=== PATIENT | male | born 1980 | race Caucasian/White ===

== ENCOUNTER 2024-04-13 11:47 | Emergency (ER) | payer OTHER, MEDICAID, SELFPAY ==
--- NOTE | ~2024-04-13 | XR_ITS ---
EXAMINATION: XR chest 2V DATE: 04/13/2024 12:23 INDICATION: Chest pain TECHNIQUE: PA and lateral views of the chest were obtained. COMPARISON: Chest radiograph dated 06/19/2004 FINDINGS: The lungs remain clear with no focal airspace opacities, pulmonary edema, pleural effusion or pneumot horax. The cardiomediastinal silhouette is normal. Mild anterior wedging of a couple vertebral bodies at the thoracolumbar junction and mild posterior wedging of the to more medially cephalad lower thor acic vertebral bodies. IMPRESSION: 1. No acute cardiopulmonary disease. Reviewed, dictated and finalized at location A. [facility]
[2024-04-13 11:47] VITALS: BP 144/104; PULSE 97; RESP 16; TEMP 37.1; O2SAT 96
--- NOTE | 2024-04-13 11:58 | ECG_ITS ---
Test Date: 2024-04-13 12:02:21 Measurements Intervals [place] Rate: 86 P: 55 MI: 148 QRS: 44 QRSD: 94 T: 61 QT: 332 QTc: 399 Interpretive Statements SINUS RHYTHM NORMAL ECG No previous ECG available for comparison Electronically Signed On 04-13-2024 16:49:40 SENIOR LABORATORY TECHNICIAN by Ge Conteh D.O.
--- OUTSIDE RECORDS SUMMARY | 2024-04-13 12:01 | XMS_ITS | Clinical Summary ---
Author Organization [facility] Address [address] [facility] [place] [address] Care Team Providers Care Tanning Wheel Operator Name Role Phone Khadar Dubose MD Primary Care Provider [phone] Source Comments [facility],non-owned Affiliates and Associated Physician Practices is amultiple site organization consisting of ambulatory clinics and hospital sitesin [place], [place], [place] and [place]. This disclosure is being madepursuant to the Care Everywhere program and may not contain all information available regarding this patient. Last updated 17.[facility] Allergies Active Allergy Reactions Criticality Noted Date Comments Aspirin Urticaria Medium 08/12/2010 Medications * Be aware that medications may not be up to date on this document. Alwaysverify current medications with the patient. Medication Sig Dispensed Refills Start Date End Date Status clonazePAM (KLONOPIN) 1 MG tablet Take 1 mg by mouth 2 times daily Active fluocinolone (DERMOTIC) 0.01 % otic oilIndications:Other seborrheic dermatitis Massage a few drops into ears twice daily. 20 mL 5 06/19/2018 Active fluocinolone acetonide (SYNALAR) 0.01 % solutionIndications:O ther seborrheic dermatitis Apply to ears twice daily. 30 days supply. 60 mL 3 01/29/2019 Active ketoconazole (NIZORAL) 2 % creamIndications:Othe r seborrheic dermatitis Apply to affected area once daily Apply to affected areas on face once daily 30 g 5 01/29/2019 Active ketoconazole (NIZORAL) 2 % shampooIndications:Ot her seborrheic dermatitis Apply to wet hair, leave on for 3-5 minutes, then rinse; three times weekly. 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 and trunk 06/15/2017 Immunizations Name Administration Dates Next Due INFLUENZA VACCINE 01/12/2019 Family History Medical History Relation Name Comments Cancer - Skin, Melanoma Paternal Grandmother Cancer - Skin, Non Melanoma Neg Hx Relation Name Status Comments Paternal Grandmother Social History Tobacco Use Types Packs/Day Years Used Date Smoking Tobacco: Former Cigarettes 1 5 Smokeless Tobacco: Current Chew Alcohol Use Standard Drinks/Week Comments Yes 0 (1 standard drink = 0.6 oz pur e alcohol) quit 2008 Sex and Gender Information Value Date Recorded Sex Assigned at Not on file Gender Identity Not on file Sexual Orientation Not on file Last Filed Vital Signs Vital Sign Reading Time Taken Comments Blood Pressure 123/80 08/12/2010 7:56 AM CDT Pulse 67 08/12/2010 7:56 AM CDT Temperature - - Respiratory Rate - - Oxygen Saturation 98% 08/12/2010 8:46 AM CDT Inhaled Oxygen Concentration - - Weight 74.8 kg (165 lb) 08/12/2010 7:56 AM CDT Height 162.6 cm (5' 4 ) 08/12/2010 7:56 AM CDT Body Mass Index 28.32 08/12/2010 7:56 AM CDT Plan of Treatment Health Maintenance Due Date Last Done Comments LIPID TESTING 1980 HIV SCREENING 06/12/1995 HEPATITIS C SCREENING 06/07/1998 DTAP/TDAP/TD VACCINES (1 - Tdap) 06/12/1999 HEPATITIS B VACCINE (1 of 3 - 19+ 3-dose series) 06/12/1999 COVID-19 VACCINE (2023-2 5 season) 2023 INFLUENZA VACCINE (#1) 2023 9, 02/06/2017, 01/14/2015 DEPRESSION SCREENING 02/28/2024 ZOSTER VACCINE (1 of 2) 2030 HIB VACCINE Aged Out No longer eligi ble based on patient's age to complete this topic HPV VACCINE Aged Out No longer eligi ble based on patient's age to complete this topic MENINGOCOCCAL (Group B) VACCINE Aged Out No longer eligible b ased on patient's age to complete this topic MENINGOCOCCAL VACCINE Aged Out No siddhartha torie eligible based on patient's age to complete this topic PNEUMOCOCCAL VACCINE Aged Out No long er eligible based on patient's age to complete this topic Care Teams Tanning Wheel Operator Relationship Specialty [place] [address] [place] [id number] PCP - General 06/09/17
--- OUTSIDE RECORDS SUMMARY | 2024-04-13 12:01 | XMS_ITS | Data Portability ---
Author Organization [place] - [facility] [employer], Main Office Address [address] [place] [id number] Care Team Providers Care Direct Entry Midwife Name Role Phone THAIS HUFFMAN Primary Care Provider Assessment Encounter Date Assessment Date Assessment LastModified by Organization Details LastModified Time 12/19/2023 12/19/2023 umbilical hernia, incarcerated most likely preperitoneal fat. Options discussed with patient. Will schedule for repair anesthesia possibly using mesh. Risks benefits discussed, main risks include bleeding infection bowel injuries Not available 12/19/2023 11:14:14 01/04/2024 01/04/2024 status post primary repair of incarcerated umbilical hernia. Doing well overall. Follow-up here p.r.n. Not available 01/04/2024 12:12:58 Plan of Treatment Reminders Order Date Submit Date Provider Last Modified By Organization Details Last Modified Time Details Appointments Follow Up 30 2024 03:30P M Marga Montesinos NP Not available Not available Not available Lab glycohemo globin, total, blood 2023 024 [facility] (Lab), [address] [place], [address], 01/19/2024 20:25:06 Referral pain managemen t referral - Please provide total pain care including prescript ions as needed. Controlle d Substance s not managed by primary care. Please call patient to schedule an appointme nt. Thank you. [address] [facility] (Pain Center), [address] [place] [address] [place], [address], 04/01/2024 11:05:28 pain managemen t referral - Please call patient to schedule an appointme nt. Thank you. 2023 024 [email or web address] Estela Mondragon [place], [address] [facility], [place], [address], 12/14/2023 09:21:14 general surgeon referral - Please call patient to schedule an appointme nt. Thank you. 2023 024 [email or web address] John Urbina MD, [address] [facility], [address], [place], [address], 12/14/2023 09:21:39 Procedures None recorded. Surgeries None recorded. Imaging CT, abdomen + pelvis, w/ contrast - Umbilical hernia with pain Please call pt to schedule 2023 024 [facility] ([facility]), [address] [place], [address], 12/12/2023 14:18:22 Medication Orders pantopraz ole 40 mg tablet,de layed release 2023 [facility][id number], [address] [place], [place], [id number], 01/19/2024 10:17:33 gabapenti n 300 mg capsule 2023 024 [facility] #[id number], [address] [place], [place], [id number], 01/19/2024 10:17:32 hydrocodo ne 5 mg-acetam inophen 325 mg tablet 2023 024 [facility] #37752, [address] [place], [place], [id number], 01/19/2024 09:57:48 hydrocodo ne 5 mg-acetam inophen 325 mg tablet [address] [facility]81600, [address] [place], [place], [id number], 01/19/2024 09:57:48 gabapenti n 300 mg capsule [address] [facility]54023, [address] [place], [place], [id number], 01/19/2024 09:57:59 omeprazol e 40 mg capsule,d elayed release [address] [facility]24856, [address] [place], [place], [id number], 01/19/2024 09:58:30 famotidin e 20 mg tablet [address] [facility]26006, [address] [place], [place], [id number], 01/19/2024 09:57:09 ondansetr on 4 mg disintegr ating tablet [address] [facility]87960, [address] [place], [place], [id number], 01/19/2024 09:58:21 Patient TargetsNo targets recorded. Patient InstructionsNo instructions recorded. Reason for Referral Pain Management Referral for Pain of left shoulder joint Please call patient to schedule an appointment. Thank you. Referring Physician: Thais Huffman Family Medicine, Encounter Date: 11/15/2023 General Surgeon Referral for Umbilical hernia Please call patient to schedule an appointment. Thank you. Referring Physician: Thais Huffman Family [facility], Encounter Date: 11/15/2023 Pain Management Referral for Chronic pain of left upper limb Please provide total pain care including prescriptions as needed. Controlled Substances not managed by primary care. Please call patient to schedule an appointment. Thank you. Referring Physician: Thais Huffman, Family Medicine, Encounter Date: 01/19/2024 Results Created Date Observation Date Name Description Value Unit Range Abnormal Flag Note LastModifiedBy Organization Detail LastModifiedTime 12/12/19 24 12/12/2023 CT, abdom en + pelvi s, w/ contr ast No observ ation record ed. [facility] [address] [place], [address], 12/12/2023 14:31:27 Result Notes None recorded. Problems Name Problem SNOMED Code Status Onset Date Resolution Date Notes Provider Name and Address Organization Details Recorded Time Lower urinary tract symptoms 711604902 Active Not Available [facility] 3 22:39:47 Pain in testicle 57098964 Active Not Available [facility] 3 22:39:47 Pain of right shoulder joint 95044816840 118439 Active 2022 Not Available [facility] 3 22:39:47 Pain of left shoulder joint 50756630149 544566 Active 2022 Not Available [facility] 3 22:39:47 Anxiety 62456811 Active 2022 Not Available [facility] 3 22:39:47 Cigarette smoker 77564902 Active 2022 Not Available [facility] 3 22:39:47 Rupture of rotator cuff of left shoulder 09689437828 965221 Active 2022 Niles Alatorre MD [address] [facility], [address], [place], [address] , [facility] 3 17:19:41 Cervical radiculop athy 22816845 Active 2023 Mariposa lopez, [facility] 4 10:44:03 Loose stool 462551180 Completed 202301/19/2024 HENNY Hanna [address] [facility], [address], [place], [address] , [employer] [facility] [employer] 4 10:15:07 Nausea and vomiting 77716065 Completed 202301/19/2024 [address]ENNY Hanna [address], [address], [place], [address] , [facility] 4 10:15:11 Diverticu litis 106909308 Completed 202301/19/2024 HENNY Hanna [address], [address], [place], [address] , [facility] 4 10:14:56 Hemangiom a of liver 61992884 Active 2023 TEO Garza [address], [address], [place], [address] , [facility] 4 14:12:29 Tendiniti s of long head of biceps brachii of left shoulder 851936720 Active 2023 HENNY Hanna [address], [address], [place], [address] , [facility] 4 09:28:52 Diverticu litis of colon 407777534 Active 2023 HENNY Hanna [address], [address], [place], [address] , [facility] 4 10:20:17 Polyuria 85706721 Active 2023 HENNY Hanna [address], [address], [place], [address] , [facility] 4 10:25:43 Partial thickness rotator cuff tear 943704726 Active 2023 FRANTZ Cutler, [facility] 4 09:29:46 Chronic back pain 149094268 Active 2023 FRANTZ Cutler, [facility] 4 09:30:08 Numbness and tingling sensation of skin 59648879640 2 Active 2023 Mariposa Robins john, [employer] [facility] 4 09:48:54 Acid reflux 017486883 Active 2023 HENNY Hanna [address], [address], [place], [address] , [employer] [facility] [employer] [facility] 4 10:36:54 Umbilical hernia 768021387 Active 2023 HENNY Hanna [address], [address], [place], [address] , [facility] 4 09:19:19 Prediabet es 427832697 Active 2023 HENNY Hanna [address], [address], [place], [address] , [employer] [facility] 4 10:11:37 Chronic pain of left upper limb 03108152781 568844 Active 2023 HENNY Hanna [address], [address], [place], [address] , [employer] [facility] 4 10:12:47 Postopera tive pain 577935150 Active 2023 HENNY Hanna [address], [address], [place], [address] , [employer] [facility] 4 10:15:25 Notes:Some problems listed i n Documents: #[id number], #[id number] could not be added to this patient's chart. Please review these documents and add these problems to the patient's chart manually as needed. Problem Notes None recorded. Procedures Surgical History Date Name Laterality Status Provider Name and Address Organization Details Recorded Time 4 Hernia Surgery completed Linh Alberts MA [employer] [facility] [employer] [facility] 01/04/2024 11:50:20 4 Transitional _Care_Manage ment completed TEO Garza [address], [address], [place], [address], [facility] [employer] [facility] 06/22/2023 08:04:59 Rotator cuff surgery completed FRANTZ Ackerman [facility] [employer] 08/07/2023 15:49:05 Sinus Surgery completed Varsha Aguilar RN [facility] [employer] 05/31/2022 12:45:41 Imaging Results Imaging Date Name Status LastModified by Organiz ation Details LastModified Time 12/12/2023 CT, abdomen + pelvis, w/ contrast completed [facility] [address] [facility], [place], [address], 12/12/2023 14:31:27 Procedure Notes None recorded. Medical Equipment None Reported. Allergies Allergen ID Allergen Name Allergen Category Reaction Reaction Severity Criticality Documentation Date Start Date Code Code System Note Provider Name and Address Organization Details Recorded Time 38491 aspirin medicatio n Not available Not available Not available 04/27/2022 1191 RxNorm Other react ions and sever ities : 'Adve rse react ion to subst ance' . HENNY Hanna [address] [facility], [address], [place], [address], [facility] [employer] 09:20:29 Medications Name Sig Start Date Stop Date Status Note LastModified by Organization Details LastModified Time cyclobenz aprine 10 mg tablet TAKE 1 TABLET BY MOUTH EVERY 8 HOURS NEEDED 08/10 completed Not Available Not Available Not Available doxycycli ne hyclate 100 mg capsule Take 1 capsule twice a day by oral route for 14 days. active Not Available Not Available No t Available ketoconaz ole 2 % shampoo 09/22 completed Not Available Not Available Not Available hydrocodo ne 5 mg-acetam inophen 325 mg tablet TAKE 1 TABLET BY MOUTH TWICE DAILY NEEDED 01/18 completed Not Available Not Available Not Available ondansetr on HCl 8 mg tablet Take 1 tablet twice a day by oral route as needed. 07/13 completed Not Available Not Available Not Available meloxicam 15 mg tablet Take 1 tablet every day by oral route as needed for 30 days. 2023 active Not Available Not Available Not Avai lable ondansetr on HCl 4 mg tablet TAKE 1 TABLET BY MOUTH THREE TIMES DAILY NEEDED FOR NAUSEA 07/13 completed Not Available Not Available Not Available Medrol (Chema) 4 mg tablets in a dose pack Take 1 dose pk by oral route as directed . 02/16 completed Not Available Not Available Not Available metronida zole 250 mg tablet TAKE 1 TABLET BY MOUTH THREE TIMES DAILY 07/13 completed Not Available Not Available Not Available metronida zole 500 mg tablet TAKE 1 TABLET BY MOUTH EVERY 8 HOURS FOR 5 DAYS DIRECTED 09/27 completed Not Available Not Available Not Available ciproflox acin 500 mg tablet TAKE 1 TABLET BY MOUTH EVERY 12 HOURS FOR 5 DAYS DIRECTED 09/27 completed Not Available Not Available Not Available sulfameth oxazole 800 mg-trimet hoprim 160 mg tablet TAKE 2 TABLETS BY MOUTH TWICE DAILY FOR 10 DAYS 12/27 completed Not Available Not Available Not Available omeprazol e 40 mg capsule,d elayed release TAKE 1 CAPSULE BY MOUTH EVERY DAY NEEDED 01/18 completed Not Available Not Available Not Available ketorolac 30 mg/mL (1 mL) injection solution Inject 2 mL every 6 hours by intramus cular route. 07/13 completed Not Available Not Available Not Available ondansetr on 8 mg disintegr ating tablet DISSOLVE 1 TABLET ON THE TONGUE TWICE DAILY NEEDED 11/14 completed Not Available Not Available Not Available ketorolac 10 mg tablet TAKE 1 TABLET BY MOUTH FOUR TIMES DAILY FOR 5 DAYS 08/01 completed Not Available Not Available Not Available prednison e 10 mg tablets in a dose pack FOLLOW PACKAGE [employer] NS 08/06 completed Not Available Not Available Not Available Celebrex 200 mg capsule Take 1 capsule every day by oral route. 08/10 completed Not Available Not Available Not Available oxycodone -acetamin ophen 5 mg-325 mg tablet TAKE 1 TABLET BY MOUTH EVERY 4 HOURS NEEDED FOR PAIN 01/18 completed Not Available Not Available Not Available famotidin e 20 mg tablet TAKE 1 TABLET BY MOUTH EVERY DAY NEEDED 01/18 completed Not Available Not Available Not Available tamsulosi n 0.4 mg capsule TAKE 1 CAPSULE BY MOUTH EVERY DAY AT BEDTIME 11/30 completed Not Available Not Available Not Available hydrocodo ne 7.5 mg-acetam inophen 325 mg tablet TAKE 1 TABLET BY MOUTH EVERY 8 TO 12 HOURS NEEDED FOR PAIN 08/10 completed Not Available Not Available Not Available cephalexi n 500 mg capsule TAKE ONE CAPSULE BY MOUTH EVERY 6 HOURS FOR 10 DAYS 09/22 completed Not Available Not Available Not Available pantopraz ole 40 mg tablet,de layed release Take 1 tablet every day by oral route as directed for 30 days. 2023 active Not Available Not Available Not Avai lable gabapenti n 300 mg capsule Take 1 capsule twice a day by oral route as directed for 30 days. 2023 active Not Available Not Available Not Avai lable sertralin e 25 mg tablet Take 1 tablet every day by oral route. 06/08 completed Not Available Not Available Not Available buspirone 7.5 mg tablet Take 1 tablet twice a day by oral route for 90 days. 06/08 completed Not Available Not Available Not Available bisacodyl 5 mg tablet,de layed release TAKE 6 TABLETS BY MOUTH AT 8 AM ON 05/25/2308/10 completed Not Available Not Available Not Available ibuprofen 600 mg tablet 08/10 completed Not Available Not Available Not Available ketoconaz ole 2 % topical cream APPLY TO THE AFFECTED AREAS ON FACE DAILY 09/22 completed Not Available Not Available Not Available ondansetr on 4 mg disintegr ating tablet DISSOLVE 1 TABLET ON THE TONGUE TWICE DAILY NEEDED 01/18 completed Not Available Not Available Not Available cefdinir 300 mg capsule TAKE 1 CAPSULE BY MOUTH EVERY 12 HOURS 07/13 completed Not Available Not Available Not Available fluticaso ne propionat e 50 mcg/actua tion nasal spray,joseph pension SHAKE LIQUID AND USE 2 SPRAYS IN EACH NOSTRIL EVERY DAY 06/08 completed Not Available Not Available Not Available metformin ER 500 mg tablet,ex tended release 24 hr Take 1 tablet every day by oral route as directed for 90 days. 2023 active Not Available Not Available Not Avai lable naproxen 500 mg tablet TAKE 1 TABLET BY MOUTH TWICE DAILY WITH FOOD NEEDED 08/10 completed Not Available Not Available Not Available diazepam 5 mg tablet TAKE 1 TABLET BY MOUTH EVERY DAY AT BEDTIME 08/01 completed Not Available Not Available Not Available amoxicill in 875 mg-potass ium clavulana te 125 mg tablet TAKE 1 TABLET BY MOUTH TWICE DAILY 07/13 completed Not Available Not Available Not Available oxycodone 5 mg tablet TAKE 1 TABLET BY MOUTH EVERY 4 HOURS NEEDED FOR PAIN 06/21 completed Not Available Not Available Not Available escitalop westley 20 mg tablet TAKE 1 TABLET BY MOUTH ONCE DAILY 07/13 completed Not Available Not Available Not Available escitalop westley 5 mg tablet TAKE 1 TABLET BY MOUTH EVERY DAY 05/31 completed Not Available Not Available Not Available varenicli ne tartrate 0.5 mg (11)-1 mg (42) tablets in a dose pack FOLLOW PACKAGE [employer] NS 07/13 completed Not Available Not Available Not Available Gavilyte- C 240 gram-22.7 2 gram-6.72 gram-5.84 gram oral solution 07/13 completed Not Available Not Available Not Available Myrbetriq 25 mg tablet,ex tended release Take 1 tablet every day by oral route. 02/16 completed One month sample given to patient Not Available Not Available Not Available Creon 36,000 unit-114, 000 unit-180, 000 unit capsule,d elayed release Take 2 capsules every day by oral route with meals. 06/08 completed Not Available Not Available Not Available Metamucil 3.4 gram/5.4 gram oral powder drink 2-5 caps full PO qd 07/13 completed Not Available Not Available Not Available Vitals Date Recorded Body height Body mass index (BMI) Body weight Body temperature Heart rate Respiratory rate Oxygen saturation Oxygen saturation in Arterial blood by Pulse oximetry Pain severity - 0-10 verbal numeric rating [Score] - Reported Systolic blood pressure Diastolic blood pressure Provider Name and Address Organization Details Last Updated DateTime 162.56 cm 32.6 kg/m2 97787.5 5 g 97 [degF] 80 /min 24 /min 97 % 97 % 6 130 mm[Hg] 80 mm[Hg] Winnie Chu RN [place] - [facility] [place] [employer] 4 10:07:28 Date Recorded Body height Body mass index (BMI) Body weight Pain severity - 0-10 verbal numeric rating [Score] - Reported Body temperature Heart rate Respiratory rate Oxygen saturation Oxygen saturation in Arterial blood by Pulse oximetry Systolic blood pressure Diastolic blood pressure Provider Name and Address Organization Details Last Updated DateTime 4 162.56 cm 32.9 kg/m2 34423.2 9 g 8 97.8 [degF] 101 /min 24 /min 98 % 98 % 140 mm[Hg] 80 mm[Hg] Winnie Chu RN [facility] [employer] [facility] 4 09:10:47 Date Recorded Body height Body mass index (BMI) Body weight Body temperature Heart rate Oxygen saturation Oxygen saturation in Arterial blood by Pulse oximetry Systolic blood pressure Diastolic blood pressure Provider Name and Address Organization Details Last Updated DateTime 4 162.56 cm 32.8 kg/m2 53969.1 4 g 98.6 [degF] 98 /min 98 % 98 % 140 mm[Hg] 80 mm[Hg] Linh Alberts MA [facility] [employer] [facility] 4 10:38:48 Date Recorded Body height Body mass index (BMI) Body weight Body temperature Heart rate Oxygen saturation Oxygen saturation in Arterial blood by Pulse oximetry Systolic blood pressure Diastolic blood pressure Provider Name and Address Organization Details Last Updated DateTime 4 162.56 cm 32.8 kg/m2 16831.1 4 g 98.6 [degF] 98 /min 98 % 98 % 130 mm[Hg] 80 mm[Hg] Linh Alberts MA [facility] [employer] [facility] 4 11:48:21 Date Recorded Body height Body mass index (BMI) Body weight Body temperature Heart rate Respiratory rate Oxygen saturation Oxygen saturation in Arterial blood by Pulse oximetry Pain severity - 0-10 verbal numeric rating [Score] - Reported Systolic blood pressure Diastolic blood pressure Provider Name and Address Organization Details Last Updated DateTime 4 162.56 cm 35.9 kg/m2 86335.2 6 g 97.1 [degF] 88 /min 20 /min 98 % 98 % 7 150 mm[Hg] 88 mm[Hg] Winnie Chu RN [facility] [employer] 10:01:46 Social History Question Answer Notes LastModified by Organization Details LastModified Time Tobacco Smoking Status Former Smoker 2 months nicotine free LUIS Jain, [place] - [facility] [employer] [facility] 12/16/2022 16:32:08 Do You Have An Advance Directive? No Information not available 07/14/2023 What Is Your Level Of Alcohol Consumption? None [id number] Information not available 04/27/2022 Is Blood Transfusion Acceptable In An Emergency? Yes Information not available 07/14/2023 What Is Your Level Of Caffeine Consumption? Moderate [id number] Information not available 04/27/2022 What Is Your Code Status? Full Code Information not available 07/14/2023 In The 14 Days Before Symptom Onset, Have You Had Close Contact With A Laboratory-confi rmed COVID-19 While That Case Was Ill? No [id number] Information not available 04/27/2022 In The 14 Days Before Symptom Onset, Have You Had Close Contact With A Person Who Is Under Investigation For COVID-19 While That Person Was Ill? No [id number] Information not available 04/27/2022 Are You Currently Employed? Yes Information not available 09/28/2023 What Is Your Occupation? [employer] Information not available 07/14/2023 Have There Been Any Changes To Your Family Or Social Situation? No Information not available 07/14/2023 Are There Any Guns Present In Your Home? No Information not available 07/14/2023 Do You Use Insect Repellent Routinely? No Information not available 07/14/2023 Where Do You Live? 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 No Information not available 07/14/2023 How Many Children Do You Have? 4 Information not available 07/14/2023 What Is Your Current Pack Years? 10-19packyears [id number] Information not available 04/27/2022 Do You Have Any Pets? Yes Information not available 07/14/2023 What Is Your Relationship Status? Information not available 07/14/2023 Do You Use Your Seat Belt Or Car Seat Routinely? Yes Information not available 07/14/2023 Do You Have Smoke And Carbon Monoxide Detectors In Your Home? Yes Information not available 07/14/2023 Are You Passively Exposed To Smoke? Yes Information not available 07/14/2023 Are There Any Smokers In Your House? No Information not available 07/14/2023 How Much Tobacco Do You Smoke? 1 PPD Information not available 06/08/2022 Do You Participate In Social Media? No Information not available 07/14/2023 Do You Feel Stressed (tense, Restless, Nervous, Or Anxious, Or Unable To Sleep At Night)? [id number] Information not available 11/15/2023 Do You Use Any Illicit Or Recreational Drugs? No [id number] Information not available 04/27/2022 Do You Use Sunscreen Routinely? No Information not available 07/14/2023 Has Tobacco Cessation Counseling Been Provided? No [id number] Information not available 04/27/2022 How Many Years Have You Smoked Tobacco? 2 Information not available 06/08/2022 Have You Recently Traveled Abroad? No [id number] [id number] Information not available 04/27/2022 Do You Have Any Dietary Restrictions? No [id number].[id number] [id number] Information not available 04/27/2022 Do You Or Have You Ever Used Any Other Forms Of Tobacco Or Nicotine? No [id number] [id number] Information not available 04/27/2022 Sex: Male Functional Status Question Answer Note LastModified by Organizat ion Details LastModified Time What is your exercise level? None [id number] Information not available 04/27/2022 Mental Status None recorded. Family History Relationship Description Onset Age of this Age Resolved Age Notes LastModified by Organization Details LastModified Time Father Diabetes mellitus [id number] Not available 04/27/2022 05:52:58 Mother Diabetes mellitus [id number] Not available 04/27/2022 05:52:58 Father Hypertensive disorder [email or web address] Not available 2022 09:47:38 Medical History Condition Response BLINDNESS N CYSTITIS N RHEUMATIC FEVER N KIDNEY STONES N DIVERTICULITIS Y BLADDER PROBLEMS N Enlarged Prostate N MRSA N SLEEP APNEA N OTHER # 1 Y INFECTIOUS DISEASE N HEART ARRHYTHMIA N LUNG DISEASE/DISORDER N PROSTATE N INSOMNIA N HISTORY OF DRUG ABUSE N COPD N RADIATION / CHEMOTHERAPY N HIGH CHOLESTEROL / HYPERLIPIDEMIA N Other # 2 Y HYPERTHYROIDISM N UTI N BLOOD DISEASES N EDEMA N HYPOTHYROIDISM N SHINGLES N BOWEL PROBLEMS N DEPRESSION (INCLUDING POST ) N BACK / NECK PROBLEMS N HAVE YOU BEEN HOSPITALIZED OR SEEN IN [facility] IN THE PAST YEAR ? Y STROKE/TIA N THYROID DISEASE N BENIGN PROSTATIC HYPERPLASIA N DIALYSIS N OBESITY Y GERD/NAUSEA N ANEURYSM N OSTEOPOROSIS N URINARY/BLADDER/KIDNEY PROBLEMS N Increased Urination N CORONARY ARTERY DISEASE (CAD) N ARTHRITIS N USE OF BLOOD THINNERS N NO SIGNIFICANT PAST MEDICAL HISTORY N DIABETES, TYPE N EMPHYSEMA N GASTROINTESTINAL DISORDER N PARKINSON N HEARTBURN / REFLUX Y GASTROINTESTINAL BLEEDING N BLOOD CLOTS N Difficulty Urinating N ASTHMA N HEPATITIS / LIVER DISEASE N CATARACTS N GOUT N SLEEP DISORDER N ALZHEIMER'S DISEASE N PAIN Y ERECTILE DYSFUNCTION N HERPES N HEADACHES/MIGRAINES N SEIZURES/EPILEPSY N GI PROBLEMS N Low Testosterone N HEART MURMUR N PACEMAKER N DIZZINESS N HEART DISEASE/HEART PROBLEMS N NEUROPATHY Y AIDS/HIV N KIDNEY DISEASE N MULTIPLE SCLEROSIS N LIVER DISEASE N MALE HYPOGONADISM N HYPERTENSION N CANCER: SPECIFY N TOURETTE'S N BLOOD TRANSFUSION N ANESTHESIA COMPLICATIONS N ANEMIA/BLOOD DISORDER N ATRIAL FIBRILLATION N AUTOIMMUNE DISEASE N TUBERCULOSIS N GLAUCOMA N Immunizations Vaccine Type Date Status Note Provider [facility] e and Address Organization Details Recorded Time Influenza, split virus, quadrivalent, PF 12/17/2021 completed Winnie Chu [facility] [employer] 09/28/2023 10:02:16 Past Encounters Encounter ID Performer Location Encounter Start Date Encounter Closed Date Diagnosis/Indication Diagnosis SNOMED-CT Code Diagnosis ICD10 Code Diagnosis Note [id number] [facility] Urology [address] [address] 09/22/2020 00:00:00 09/22/2020 15:35:54 [id number] [facility] Urology [address] [address] 10/20/2020 00:00:00 10/20/2020 15:10:09 [id number] [facility] [place] [address] [facility], [address] [place] [address] 11/30/2020 00:00:00 11/30/2020 10:04:39 [id number] [facility] General Surgery [address] [place] [address] 08/05/2021 00:00:00 08/05/2021 13:06:40 [id number] [facility] [place] [address] [facility] [address] [place] [address] 08/06/2021 00:00:00 08/06/2021 10:46:31 [id number] [facility] [place] [address] [facility] [address] [place] [address] 08/31/2021 00:00:00 08/31/2021 10:32:56 [id number] [facility] [place] [address] [place] [address] [address] [place] [address] 12/17/2021 00:00:00 12/17/2021 12:54:19 [id number] [facility] [place] [address] [facility] [address] [place] [address] 01/10/2022 00:00:00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
--- OUTSIDE RECORDS SUMMARY | 2024-04-13 12:01 | XMS_ITS | Clinical Summary ---
Author Organization [place] [id number] [facility] Address [facility] [place] [address] Care Team Providers Care Field Consultant Name Role Phone Pily Alfredo Primary Care Provider [phone] Allergies Active Allergy Reactions Criticality Noted Date Comments Aspirin Hives Medium 01/09/2023 Medications escitalopram (LEXAPRO) 20 mg tabletIndications: Anxiety with Depression Take 1 tablet (20 mg total) by mouth as needed 3 Active meloxicam (MOBIC) 15 mg tabletIndications: Osteoarthritis Take 1 tablet (15 mg total) by mouth fish receiver before breakfast 3 Active sod yxxsg-llwvqf-nzztg z bottle 2,300-700 mg kit Administer 2 sprays into left nostril 3 (three) times a day 1 kit 3 Active oxyCODONE (ROXICODONE) 5 mg immediate release tabletIndications: Pain Take 1 tablet (5 mg total) by mouth every 4 (four) hours as needed for pain 5 tablet 3 Active ondansetron ODT (ZOFRAN-ODT) 4 mg disintegrating tablet Take 1 tablet (4 mg total) by mouth every 8 (eight) hours as needed for nausea or vomiting 20 tablet 3 Active Active Problems Problem Noted Date Diagnosed Date Chronic sinusitis 12/29/2022 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 Surgical History Surgery Date Site/Laterality Comments SHOULDER SURGERY 11/27/2022 - 12/27/2022 SINUS SURGERY 02/27/2018 - 02/26/2019 HERNIA REPAIR 02/28/1984 - 02/26/1985 Medical History Medical History Date Comments Migraine Anxiety Family History Medical History Relation Name Comments Diabetes Father No Known Problems Mother Relation Name Status Comments Father Mother Social History Tobacco Use Types Packs/Day Years Used Date Smoking Tobacco: Never Passive Smoke Exposure: Never Smokeless Tobacco: Former Chew Quit: 11/2022 AUDIT-C Answer Date Recorded Q1: How often do you have a drink containing alcohol? Never 01/13/2023 Q2: How many drinks containi ng alcohol do you have on a typical day when you are drinking? Patient does not drink Q3: How often do you have si x or more drinks on one occasion? Never 01/13/2023 Personal Safety Answer Date Recorded Have you ever been in or are you currently in a harmful physical or emotional relationship or is someone making you feel afraid or unsafe? Denies 01/13/2023 Sex and Gender Information Value Date Recorded Sex Assigned at Not on file Legal Sex Male 8:06 AM CDT Gender Identity Not on file Sexual Orientation Not on file Obstetrics History Last Filed Vital Signs Vital Sign Reading Time Taken Comments Blood Pressure 149/93 01/13/2023 2:20 PM HSE COORDINATOR Pulse 60 01/13/2023 2:20 PM HSE COORDINATOR Temperature 36.4 C (97.5 F) 01/13/2023 2:20 PM HSE COORDINATOR Respiratory Rate 25 01/13/2023 2:20 PM HSE COORDINATOR Oxygen Saturation 96% 01/13/2023 2:20 PM HSE COORDINATOR Inhaled Oxygen Concentration - - Weight 90.7 kg (200 lb) 01/13/2023 10:15 AM HSE COORDINATOR Height 162.6 cm (5' 4 ) 01/13/2023 10:15 AM HSE COORDINATOR Body Mass Index 34.33 01/13/2023 10:15 AM HSE COORDINATOR Plan of Treatment Health Maintenance Due Date Last Done Comments Depression Screening 1980 Hepatitis C Screening 1980 DTaP/Tdap/Td Vaccine (6 - Tdap) 06/12/1991 10/29/1985, 05/12/1982, 1980, Additional history exists Varicella Vaccines (1 of 2 - 13+ 2-dose series) 1993 Hepatitis B Screening 1998 Regular Well Visit/Exam 18-64 1998 Covid-19 Vaccine ( season) 2023 01/26/2021, 07/01/2020, 06/06/2020 Influenza Vaccine (#1) 2023 2, 12/02/2020, 11/20/2019, Additional history exists HPV Vaccines Aged Out No longer eligi ble based on patient's age to complete this topic Pneumococcal vaccine <65 Aged Out No longer eligible based on patient's age to complete this topic Insurance [facility] Care Teams Field Consultant Relationship Specialty Start Date End Date Pily Alfredo PA [address] [place] [phone] PCP - General 12/21/22
--- OUTSIDE RECORDS SUMMARY | 2024-04-13 12:01 | XMS_ITS | Referral Summary ---
Author Organization [place] [id number] [facility] Address Formerly [facility], [id number] [place] [address] Care Team Providers Care Sales And Service Engineer Name Role Phone Pily Alfredo Primary Care Provider [phone] Allergies Active Allergy Reactions Criticality Noted Date Comments Aspirin Hives Medium 01/09/2023 Medications escitalopram (LEXAPRO) 20 mg tabletIndications: Anxiety with Depression Take 1 tablet (20 mg total) by mouth as needed 3 Active meloxicam (MOBIC) 15 mg tabletIndications: Osteoarthritis Take 1 tablet (15 mg total) by mouth i&c technician before breakfast 3 Active sod pkehb-[id number]-rdukt z bottle 2,300-700 mg kit Administer 2 [...] sinusitis 12/29/2022 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 Social History Tobacco Use Types Packs/Day Years [...] Comments Blood Pressure 149/93 01/13/2023 2:20 PM HANDS HANGER Pulse 60 01/13/2023 2:20 PM HANDS HANGER Temperature 36.4 C (97.5 F) 01/13/2023 2:20 PM HANDS HANGER Respiratory Rate 25 01/13/2023 2:20 PM HANDS HANGER Oxygen Saturation 96% 01/13/2023 2:20 PM HANDS HANGER Inhaled Oxygen Concentration - - Weight 90.7 kg (200 lb) 01/13/2023 10:15 AM HANDS HANGER Height 162.6 cm (5' 4 ) 01/13/2023 10:15 AM HANDS HANGER Body Mass Index 34.33 01/13/2023 10:15 AM HANDS HANGER Plan of Treatment Not on file Insurance [facility] Care Teams Sales And Service Engineer Relationship Specialty Start Date End Date Pily Alfredo PA [address] [place] [address] PCP - General 12/21/22
--- OUTSIDE RECORDS SUMMARY | 2024-04-13 12:02 | XMS_ITS | Clinical Summary ---
Author Organization [facility] Address [facility] [place] [address] Care Team Providers Care Roller Man Name Role Phone Pily Alfredo Primary Care Provider [phone] Allergies No known active allergies Medications cyclobenzaprine (FLEXERIL) 10 MG tablet Take 1 tablet (10 mg total) by mouth 3 (three) times daily as needed for Muscle Spasms. 16 tablet 05/28/2022 Active Social History Tobacco Use Types Packs/Day Years Used Date Smoking Tobacco: Never Smokeless Tobacco: Current Chew Tobacco Cessation:Ready to Q uit: Not Asked; Counseling Given: Not Answered Alcohol Use Standard Drinks/Week Comments Not Currently 0 (1 standard drink = 0.6 oz pur e alcohol) socially Sex and Gender Information Value Date Recorded Sex Assigned at Not on file Legal Sex Male 1:03 PM CDT Gender Identity Not on file Sexual Orientation Not on file Last Filed Vital Signs Vital Sign Reading Time Taken Comments Blood Pressure 122/99 05/28/2022 5:58 PM CDT Pulse 88 05/28/2022 5:58 PM CDT Temperature 36.9 C (98.5 F) 05/28/2022 5:58 PM CDT Respiratory Rate 16 05/28/2022 5:58 PM CDT Oxygen Saturation 99% 05/28/2022 5:58 PM CDT Inhaled Oxygen Concentration - - Weight 88.9 kg (196 lb) 05/28/2022 5:58 PM CDT Height 162.6 cm (5' 4 ) 05/28/2022 5:58 PM CDT Body Mass Index 33.64 05/28/2022 5:58 PM CDT Plan of Treatment Health Maintenance Due Date Last Done Comments Annual Physical 06/12/1983 DTaP, Tdap and Td Vaccines (6 - Tdap) 06/12/1991 10/29/1985, 05/12/1982, 1980, Additional history exists Hepatitis C 1998 Hepatitis B Vaccines (1 of 3 - 19+ 3-dose series) 06/12/1999 COVID-19 Vaccine ( season) 2023 01/26/2021, 07/01/2020, 06/06/2020 Influenza Adult (#1) 2023 12/17/2021, 12/02/2020, 11/20/2019, Additional history exists HPV Vaccines Aged Out No longer eligi ble based on patient's age to complete this topic Meningococcal B Vaccine Aged Out No l onger eligible based on patient's age to complete this topic Meningococcal Vaccine Aged Out No siddhartha torie eligible based on patient's age to complete this topic Pneumococcal Vaccine: Pediatrics (0 to 5 Years) and At-Risk Patients (6 to 64 Years) Aged Out No longer eligible based on patient's age to complete this topic RSV Immunizations Under 20 Months Aged Out No longer eligible based on patient's age to complete this topic Insurance [employer] Care Teams Roller Man Relationship Specialty Start Date End Date Pily Alfredo PA [address] [place], [place] [address] [address] PCP - General PHYSICIAN MARGIN CLERK 05/28/22
--- OUTSIDE RECORDS SUMMARY | 2024-04-13 12:02 | XMS_ITS | Referral Summary ---
Author Organization [facility] Address [address] [place] [address] Care Team Providers Care Patient Clerical Assistant Name Role Phone Khadar Dubose MD Primary Care Provider [phone] Source Comments [facility],non-owned Affiliates and Associated Physician Practices is amultiple site organization consisting of ambulatory clinics and hospital sitesin [place], [place], [place] and [place]. This disclosure is being madepursuant to the Care Everywhere program and may not contain all information available regarding this patient. Last updated 17.[facility] Allergies Active Allergy Reactions Criticality Noted Date [...] Administration Dates Next Due INFLUENZA VACCINE 01/12/2019 Social History Tobacco Use Types Packs/Day Years [...] 08/12/2010 7:56 AM CDT Plan of Treatment Not on file Care Teams Patient Clerical Assistant Relationship Specialty Start Date End Date Khadar Dubose MD [address] [place] [id number] PCP - General 06/09/17
--- OUTSIDE RECORDS SUMMARY | 2024-04-13 12:02 | XMS_ITS | Patient Health Summary ---
Author Organization [facility] Address [address] [facility] [place] [address] Care Team Providers Care Space Controller Name Role Phone Khadar Dubose MD Primary Care Provider Note from [facility],non-owned Affiliates and Associated Physician Practices is amultiple site organization consisting of ambulatory clinics and hospital sitesin [place], [place], [place] and [place]. This disclosure is being madepursuant to the Care Everywhere program and may not contain all information available regarding this patient. Last updated 17.[facility] Allergies * Aspirin(Urticaria) -Medium Criticality Medications * Be aware that medications may not be up to date on this document. Alwaysverify current medications with the patient. * clonazePAM (KLONOPIN) 1 MG tablet Take 1 mg by mouth 2 times daily * fluocinolone (DERMOTIC) 0.01 % otic oil(Started 06/19/2018) Massage a few drops into ears twice daily. 5 refills remaining * fluocinolone acetonide (SYNALAR) 0.01 % solution(Started 01/29/2019) Apply to ears twice daily. 30 days supply. 3 refills remaining * ketoconazole (NIZORAL) 2 % cream(Started 01/29/2019) Apply to affected area once daily Apply to affected areas on face once daily 5 refills remaining * ketoconazole (NIZORAL) 2 % shampoo(Started 06/19/2020) Apply to wet hair, leave on for 3-5 minutes, then rinse; three times weekly. 11 refills by 06/19/2021 Active Problems Problem Noted Date Diagnosed Date Other seborrheic dermatitis 06/15/2017 Neoplasm of uncertain behavior of skin 8 Varicose vein of leg 06/15/2017 Multiple benign melanocytic nevi of upper and lower extremities and trunk 06/15/2017 Immunizations * INFLUENZA VACCINE(Given 01/12/2019) Social History Tobacco Use Types Packs/Day Years [...] Mass Index 28.32 08/12/2010 7:56 AM CDT Procedures * IN BIOPSY OF SKIN LESION(Performed 06/26/2017) Performed for Neoplasm of uncertain behavior of skin * DERMATOPATHOLOGY(Performed 06/15/2017) Performed for Neoplasm of uncertain behavior of skin * GROSS + MICRO EXAM(Performed 08/12/2010) * GROSS + MICRO EXAM(Performed 08/12/2010) Results * IN BIOPSY OF SKIN LESION (06/26/2017 5:09 PM CDT) Narrative Wyatt Andres MD - 06/26/2017 5:09 PM CDT Kasia Araya MD 06/15/2017 3:14 PM Risks, benefits and alternatives to shave biopsy were discussed with the patient. Verbal consent was obtained. Encounter Diagnoses Name Primary? Neoplasm of uncertain behavior of skin Yes Other seborrheic dermatitis Dermatofibroma of back Varicose vein of leg Multiple benign melanocytic nevi of upper and lower extremities and trunk Location: R cheek Skin prep: Alcohol Anesthesia: 1% lidocaine with epinephrine Hemostasis: Aluminum chloride Dressing and wound care discussed. Specimen(s) placed in a patient labeled container and sent to [facility]. Patient agrees to phone call for results and message if not available. Kasia Araya MD Dermatology Resident, PGY-4 Kasia Araya MD Wyatt Andres MD PROCEDURE/MINOR SURG ICAL ORDERABLES * DERMATOPATHOLOGY (06/15/2017 12:00 AM CDT) Case Report Dermatopathology Report Case: [id number] Authorizing Provider: Wyatt Andres MD Collected: 06/15/2017 12:00 AM Ordering Location: [facility] [place] [facility] Received: 06/16/2017 06:20 AM Dermatology Pathologist: Xiomara Obando MD Specimen: Skin, right cheek 10:46 AM CDT DERMATOPATHOLOGY LABORATORY Final Diagnosis Specimen A. SKIN, right cheek: COMPOUND MELANOCYTIC NEVUS, IRRITATED (D22.39) 10:46 AM T DERMATOPATHOLOGY LABORATORY Clinical History Irritated nevus. 10:46 AM T DERMATOPATHOLOGY LABORATORY Gross Description Specimen A: Received is one formalin filled container labeled with the patient's name and designated right cheek. The specimen consists of a shave biopsy measuring 5m5h8ct. Jar 0. 10:46 AM T DERMATOPATHOLOGY LABORATORY Microscopic Description Specimen A. SKIN, right cheek: There is melanin pigment in the stratum corneum. There are nests of melanocytes at the dermal-epidermal junction and within the dermis. 10:46 AM T DERMATOPATHOLOGY LABORATORY Disclaimer An external and internal positive and negative controls are appropriate for the histochemical, immunohistochemical and immunofluorescence stain(s) in this case (if any), except where stated explicitly. The performance characteristics of the stain(s) cited in this report were developed and its performance characteristic determined by the Dermatopathology Laboratory at [facility]. These tests need not be, and therefore are not, approved by the [place] Food and Drug Administration. The tests are used for clinical purposes. Billing Codes Specimen Charges Stain Charges 93434 1 8 10:46 AM CDT DERMATOPATHOLOGY LABORATORY Embedded Images 8 10:46 AM CDT DERMATOPATHOLOGY LABORATORY Pathology/Cytolog y TISSUE SPECIMEN FROM SKIN / Unknown 06/15/2017 06/16/2017 6:20 AM CDT Wyatt Andres MD LAB - PATHOLOGY/CYTO LOGY ORDERABLES DERMATOPATHOLOGY LABORATORY [facility] - Department of Dermatology [address] [place] [address], 5th Floor Lab [address] [phone] * GROSS + MICRO EXAM (08/12/2010 10:00 AM CDT) Only the most recent of2 resultswithin the time period is included. Result CASE NUMBER [id number] Comment: ORDERING PHYSICIAN DEVEN BAZAN SPECIMEN TYPE Colon-right colon bx Date 08/12/2010 Physician Cb Bazan Gross Description The specimen is received in three Formalin containers labeled with the patient's name, Kevinej Mills Jr. The first container is labeled right colon biopsy, and consists of seven yellow romo tissue fragments ranging in size from 0.2 to 0.4 cm, entirely submitted in cassette A. The second container is labeled left colon biopsy, and consists of six yellow romo tissue fragments ranging in size from 0.1 to 0.3 cm, entirely submitted in cassette B. The third container is labeled rectal biopsy, and consists of five yellow romo tissue fragments ranging in size from <0.1 to 0.3 cm, entirely submitted in cassette C. TF gerber Microscopic Exam The right, left colon and rectal biopsies show multiple fragments of unremarkable colonic mucosa with no abnormal increase in acute or chronic inflammatory cells in the lamina propria. No cryptitis, crypt abscesses or granulomas are seen. The subepithelial collagenous layer is normal in thickness. MM/vl Diagnosis I. Right colon, biopsy -- History of bloody diarrhea -- No pathologic diagnosis II. Left colon, biopsy -- No pathologic diagnosis III. Rectum, biopsy -- No pathologic diagnosis MM/vl Flat Folder vl Pathologist Meeta Calzada MD [place]. 08/13/2010 1157 <3> CPT code 87492e5 MISCELLANEOUS SAMPLES / Unknown 08/12/2010 10:00 AM CDT 08/12/2010 11:18 AM CDT Historical Provider MD LAB - PATHOLOGY/C YTOLOGY ORDERABLES Care Teams Space Controller Relationship Specialty Start Date End Date Khadar Dubose MD [address] [place] [address] PCP - General 06/09/17
[2024-04-13 12:07] VITALS: BP 129/96; PULSE 92; RESP 16; O2SAT 96
[2024-04-13 12:12] LABS: Basophils Absolute Auto 0.1 K/mm3 (0.0-0.1); Basophils Percent Auto 0.6 % (0.2-1.2); Eosinophils Absolute Auto 0.2 K/mm3 (0-0.3); Hematocrit 41.7 % (42.0-52.0); Hemoglobin 13.8 g/dL (14.0-18.0); Immature Granulocyte Absolute 0.04 K/mm3 (0.00-0.031); Immature Granulocyte Percent A 0.4 % (0-0.5); Lymphocytes Absolute Auto 4.27 K/mm3 (0.9-3.2); Mean Corpuscular HGB Conc 33.1 g/dl (32-36); Mean Corpuscular Hemoglobin 29.8 pg (26-34); Mean Corpuscular Volume 90.1 fl (80-100); Mean Platelet Volume 11.1 fl (7.4-10.4); Monocytes Absolute Auto 0.7 K/mm3 (0.1-0.6); Monocytes Percent Auto 6.7 % (2.6-8.5); Neutrophils Absolute Auto 4.7 K/mm3 (1.3-6.7); Neutrophils Percent Auto 47.3 % (45.5-73.1); Platelet Count Result 291 k/mm3 (150-375); Red Blood Count 4.63 M/mm3 (4.6-6.20); Red Cell Distribution Width 13.9 % (11.5-14.5); White Blood Count 9.9 K/mm3 (4.5-10.0)
[2024-04-13 12:23] LABS: INR 0.9; Prothrombin Time 13.1 Seconds (11.1-14.7)
[2024-04-13 12:24] LABS: Partial Thromboplastin Time 27.7 Seconds (22.3-36.8)
[2024-04-13 12:31] LABS: Alanine Aminotransferase 116 U/L (6-50); Albumin Level 4.4 g/dL (3.5-5.1); Alkaline Phosphatase 71 U/L (38-126); Anion Gap 12 mmol/L (4-12); Aspartate Amino Transferase 51 U/L (17-59); Bilirubin,Total 0.3 mg/dL (0.2-1.3); Blood Urea Nitrogen 17 mg/dL (9-20); Calcium 9.6 mg/dL (8.4-10.2); Carbon Dioxide 24 mmol/L (22-30); Chloride 105 mmol/L (98-107); Estimated CRCL calculation 154 ml/min; Estimated Glomerular Filt Rate > 60; Glucose 187 mg/dL (65-110); Lipase 98 U/L (23-300); Potassium 4.2 mmol/L (3.4-5.0); Sodium 141 mmol/L (137-145)
[2024-04-13 12:40] LABS: Troponin I < 0.012 ng/mL (0.000-0.034)
[2024-04-13] MEDS: diphenhydrAMINE HCl INJ 50 MG/ML VIAL 25 MG IV PUSH (13:15)
[2024-04-13] MEDS: LORazepam INJ (*CRX) 2 MG/ML VIAL 0.5 MG IV PUSH (13:16)
[2024-04-13 13:30] VITALS: BP 134/89; PULSE 82; RESP 19; O2SAT 95
[2024-04-13 14:00] VITALS: BP 133/82; PULSE 75; RESP 17; O2SAT 94
--- NOTE | 2024-04-13 14:34 | ECG_ITS ---
Test Date: 2024-04-13 15:01:22 Measurements Intervals [place] Rate: 82 P: 44 FL: 142 QRS: 37 QRSD: 89 T: 55 QT: 347 QTc: 407 Interpretive Statements SINUS RHYTHM NONSPECIFIC T-WAVE ABNORMALITY- LATERAL LEADS BORDERLINE ECG Compared to ECG 04/13/2024 12:02:21 T-wave abnormality now present Electronically Signed On 04-13-2024 16:59:09 AESTHETICS INSTRUCTOR by Ge Conteh D.O.
[2024-04-13] MEDS: diazePAM (*CRX) 5 MG TABLET PO (15:29)
--- NOTE | 2024-04-13 15:30 | ED_ITS ---
HPI - General Adult General Chief complaint: Anxiety Stated complaint: chest pressure/abd pain Time Seen by Provider: 04/13/24 11:56 History of Present Illness HPI narrative: Patient is a 43-year-old male who presents ER in his complaints of chest tightness. Feels like anxiety but is persisting longer than typical. No exertional component. He is about to change jobs which is increased stress. He also ran out of his diazepam yesterday and is unable see his doctor until the . No fevers or chills. No history of heart disease. No dyspnea or diaphoresis. Of note patient also developed some swelling under his right eye which is atypical. Symptoms had started after eating some food in had some spicy peppers. No known food allergies. No difficulty swallowing. Related Data Allergies Allergy/AdvReac Type Severity Reaction Status Date / Time aspirin Allergy Intermediate Hives Verified 04/13/24 11:53 ibuprofen Allergy Intermediate Hives Verified 04/13/24 11:53 Review of Systems 2 Constitutional: Constitutional: Reports no additional constitutional complaints ENT: Reports system reviewed and no additional complaints, except as documented Cardiovascular: Cardiovascular: Reports no additional cardiovascular complaints Respiratory: Respiratory: Reports no additional respiratory complaints Integumentary/Breasts: Skin/Breast: Denies pruritus and Denies rash PMFSH Past Medical History Medical History (Updated 04/13/24 @ 16:41 by Jose Juan Rodriguez MD) Anxiety Exam 2 Narrative: GENERAL: Well-appearing, well-nourished, and in no acute distress. HEAD: Normocephalic, atraumatic. Eyes: PERRLA, EOMI ENT: Mucous membranes moist. Mild edema inferior to the right eye. CHEST: Clear to auscultation. No respiratory distress. HEART: Regular rate and rhythm. Normal peripheral pulses. ABDOMEN: Soft, nontender, nondistended. EXTREMITIES: Normal range of motion. No edema. SKIN: Warm, dry, no rash. NEURO: Alert and oriented x3. PSYCH: Normal mood and affect. Course Course Emergency Course: Patient resting comfortably. Anxiety treated. Troponin negative x2. Swelling under eye better. Appropriate for discharge home. Will give antianxiety medicine to get to his clinic appointment. Vital Signs Vital signs: Vital Signs Temperature 98.8 F 04/13/24 11:47 Pulse Rate 97 04/13/24 11:47 Respiratory Rate 16 04/13/24 11:47 Blood Pressure 144/104 H 04/13/24 11:47 Pulse Oximetry 96 04/13/24 11:47 Oxygen Delivery Room Air 04/13/24 11:47 Temperature 98.8 F 04/13/24 11:47 Pulse Rate 75 04/13/24 14:00 Respiratory Rate 17 04/13/24 14:00 Blood Pressure 133/82 04/13/24 14:00 Pulse Oximetry 94 04/13/24 14:00 Oxygen Delivery Room Air 04/13/24 11:47 Medical Decision Making Vital Signs Vital Signs: Vital Signs Temperature 98.8 F 04/13/24 11:47 Pulse Rate 97 04/13/24 11:47 Respiratory Rate 16 04/13/24 11:47 Blood Pressure 144/104 H 04/13/24 11:47 Pulse Oximetry 96 04/13/24 11:47 Oxygen Delivery Room Air 04/13/24 11:47 Temperature 98.8 F 04/13/24 11:47 Pulse Rate 75 04/13/24 14:00 Respiratory Rate 17 04/13/24 14:00 Blood Pressure 133/82 04/13/24 14:00 Pulse Oximetry 94 04/13/24 14:00 Oxygen Delivery Room Air 04/13/24 11:47 Lab Data 04/13/24 12:06 04/13/24 12:06 Labs: Lab Results 04/13/24 04/13/24 Range/Units 12:06 15:34 WBC 9.9 (4.5-10.0) K/mm3 RBC 4.63 (4.6-6.20) M/mm3 Hgb 13.8 L (14.0-18.0) g/dL Hct 41.7 L (42.0-52.0) % MCV 90.1 (80-100) fl MCH 29.8 (26-34) pg MCHC 33.1 (32-36) g/dl RDW 13.9 (11.5-14.5) % Plt Count 291 (150-375) k/mm3 MPV 11.1 H (7.4-10.4) fl Immature Gran % (Auto) 0.4 (0-0.5) % Neut % (Auto) 47.3 (45.5-73.1) % Lymph % (Auto) 43.0 (18.3-44.2) % [place] % (Auto) 6.7 (2.6-8.5) % Eos % (Auto) 2.0 (0-4.4) % Baso % (Auto) 0.6 (0.2-1.2) % Lymph # (Auto) 4.27 H (0.9-3.2) K/mm3 [place] # (Auto) 0.7 H (0.1-0.6) K/mm3 Eos # (Auto) 0.2 (0-0.3) K/mm3 Baso # (Auto) 0.1 (0.0-0.1) K/mm3 Abs Immat Gran (auto) 0.04 H (0.00-0.031) K/mm3 Absolute Neuts (auto) 4.7 (1.3-6.7) K/mm3 Absolute Nucleated RBC 0.000 (0.0-0.012) K/mm3 Nucleated RBC % 0.0 (0.0-0.2) % PT 13.1 (11.1-14.7) Seconds INR 0.9 APTT 27.7 (22.3-36.8) Seconds Sodium 141 (137-145) mmol/L Potassium 4.2 (3.4-5.0) mmol/L Chloride 105 (98-107) mmol/L Carbon Dioxide 24 (22-30) mmol/L Anion Gap 12 (4-12) mmol/L BUN 17 (9-20) mg/dL Creatinine 0.55 L (0.7-1.3) mg/dL Estim Creat Clear Calc 154 ml/min Estimated GFR > 60 (59 - ) Glucose 187 H (65-110) mg/dL Calcium 9.6 (8.4-10.2) mg/dL Total Bilirubin 0.3 (0.2-1.3) mg/dL AST 51 (17-59) U/L ALT 116 H (6-50) U/L Alkaline Phosphatase 71 (38-126) U/L Troponin I < 0.012 < 0.012 (0.000-0.034) ng/mL Total Protein 7.0 (6.3-8.2) g/dL Albumin 4.4 (3.5-5.1) g/dL Lipase 98 (23-300) U/L Imaging Data Radiologist's impression: ITS Impressions Chest X-Ray 04/13/24 12:51 IMPRESSION: 1. No acute cardiopulmonary disease. ECG Data EKG #1: ECG completion date: 04/13/24 ECG completion time: 15:01 EKG Interpretation: normal rate (82), sinus rhythm, non-specific ST changes, normal QRS, normal QT and NL axis Discharge Plan Discharge Clinical Impression: Panic disorder Patient Disposition: Home, Self-Care Condition: Stable Instructions: Anxiety (ED) Additional Instructions: Please return to the emergency department if you develop severe and persistent chest pain, difficulty breathing, dizziness, leg swelling or if you are coughing up blood as these can be signs of a medical emergency. Please call your doctor for a follow up appointment to determine the need for further testing. Patient Language: Bengali Prescriptions: New diazepam [Valium] 5 mg tablet 5 mg PO BID Qty: 10 0RF Follow-up/Referrals: PHYSICIAN,MICROSOFT WINDOWS ENGINEER [Primary Care Provider] -
--- NOTE | 2024-04-13 15:38 | PC.NURSE ---
During bedside shift report patient stated, my anxiety has increased. I fall asleep and then wake up in a panic. pt states that his anxiety has increased since he got here. this rn notified edp dr. juarez about patient increase in anxiety like symptoms at this time. pt vitals wnl at this time. pt continues to be ao x4 at this time. EDP verbalized awareness.
[2024-04-13 16:26] LABS: Troponin I < 0.012 ng/mL (0.000-0.034)
--- NOTE | 2024-04-13 17:07 | PC.NURSE ---
UPon discharge patient verbalized feeling better with anxiety. pt verbalized driving him home upon discharge.
== END 2024-04-13 17:10 | disposition home or self-care (01) ==
PROVIDERS: Emergency Provider Emergency Medicine
DX: F41.0 Panic disorder [episodic paroxysmal anxiety] (principal); R94.31 Abnormal electrocardiogram [ECG] [EKG]
CPT/HCPCS: 36415; 71046; 80053; 83690; 84484; 85025; 85610; 85730; 93005; 96374; 96375; 99284; A9270; J1200; J2060